=== PATIENT | male | born 1970 | race African-American/Black ===

== ENCOUNTER 2017-04-09 12:00 | Observation (INO) | payer SELFPAY ==
[2017-04-09 13:40] LABS: CKMB 1.8 ng/mL (0-6.6); Troponin I 0.019 ng/mL (< 0.028)
[2017-04-09] MEDS ORDERED: ISOVUE-370 76%-LOCM 1 ML ONE (13:40)
--- NOTE | 2017-04-09 14:42 | HP ---
PRIMARY CARE PHYSICIAN: Robert Stephens M.D. REASON FOR ADMISSION: Epigastric abdominal pain. HISTORY OF PRESENT ILLNESS: A 46-year-old -[place] male who has history of hypertension, dys lipidemia, coronary artery disease with a drug-eluting stent who presented to [facility] w ith complaint of epigastric abdominal pain. The patient reports that this morning he woke up and he was having epigastric abdominal pain. He denies any radiation of pain to the back. He was feeling n auseated. He did not eat anything since last night. He reports that this type of pain exactly he andujar d when he had a stent placed in 2016. Patient denies any fever or chills. He denies any vomiting. He denies any melena or hematochezia. He denies taking any NSAID. He drinks alcohol on weekends on y. He does smoke about 1 pack lasting for 2 days. This morning, he had little bit loose stool, but he denies any crampy abdominal pain. He denies any UTI symptoms. He denies any chest pain and palpi tation. He denies any dyspnea. He denies any orthopnea, PND or leg swelling. He feels about 8/10 i n intensity pain which mostly he describes burning discomfort. He never had this type of problem bef ore. He was evaluated at [facility]. Over there, all blood tests including cardiac enzymes cam e back to normal. This patient was transferred to our hospital for rule out ACS. REVIEW OF SYSTEMS: The following complete review of systems was negative, unless otherwise mentioned in the HPI or below: Constitutional: Weight loss or gain, ability to conduct usual activities. Skin: Rash, itching. Eyes: Double vision, pain. ENT/Mouth: Nose bleeding, neck stiffness, pain, tenderness. Cardiovascular: Palpitations, dyspnea on exertion, orthopnea. Respiratory: Shortness of breath, wheezing, cough, hemoptysis, fever or night sweats. Gastrointestinal: Poor appetite, abdominal pain, heartburn, nausea, vomiting, constipation, or diarr hea. Genitourinary: Urgency, frequency, dysuria, nocturia. Musculoskeletal: Pain, swelling. Neurologic/Psychiatric: Anxiety, depression. Allergy/Immunologic: Skin rash, bleeding tendency. Please see my HPI for pertinent positives and negatives. All other review of systems reviewed and ne gative except as mentioned in the HPI. ALLERGIES: No known drug allergies. CURRENT HOME MEDICATIONS: Lipitor 10 mg p.o. daily, Plavix 75 mg p.o. daily, lisinopril 2.5 mg p.o. daily, metoprolol 50 mg p.o. daily, aspirin 81 mg p.o. daily, and Claritin 10 mg p.o. daily. PAST MEDICAL HISTORY: Chronic low back pain, hypertension, dyslipidemia, coronary artery disease req uired stent placement in 2016. PAST SURGICAL HISTORY: Right shoulder surgery, carpal tunnel repair on the right side, cardiac nan terization with stent placement in 2016. PAST PSYCHIATRIC HISTORY: Reviewed and negative. SOCIAL HISTORY: Patient drinks alcohol socially, particularly on weekend. He drinks heavily about 1 case per weekend. He does smoke 1 pack lasting for 2 days. He is a former drug abuser with [employer]. He denies any illicit drug abuse. He is not working. FAMILY HISTORY: Positive for coronary artery disease among several family members. EMERGENCY ROOM COURSE: Patient was given morphine 4 mg x2, Zofran 4 mg, and aspirin 243 mg at [facility]. PHYSICAL EXAMINATION: VITAL SIGNS: Currently, blood pressure 177/110, pulse 65, respiratory rate 16, temperature 98.6, sat uration 97% on room air. Weight 88 kilograms. GENERAL: The patient is hypertensive, in no obvious acute distress. HEAD: Normocephalic, atraumatic. EYES: Pupils round, reactive to light. Extraocular muscles intact. ENT: Oropharynx within normal limits. Moist mucous membranes. No oral lesions. No pharyngeal eryt ben, no exudate. NECK: Supple, no JVD, no thyromegaly, no carotid bruit, no jugular venous distention. LUNGS: Clear to auscultation without any rhonchi or rales. CARDIAC: S1 and S2 regular without any murmur. ABDOMEN: Soft. No Ward's sign of epigastric discomfort noted, but no tenderness, no organomegaly, no mass. No suprapubic tenderness. Bowel sounds present and nondistended. No peritoneal signs, no guarding, no rigidity. BACK: Examination unremarkable, no CVA tenderness. EXTREMITIES: Upper extremity passive movements of all joints are normal. Lower extremities: No aris ma. Good peripheral pulsation. SKIN: No skin rash. HEMATOLOGICAL SYSTEM: No lymphadenopathy. NEUROLOGIC: Nonfocal examination. IMAGING DATA AND SIGNIFICANT LABORATORY DATA: 1. EKG showing sinus bradycardia, nonspecific ST-T changes. 2. Chest x-ray based on my review, no acute cardiopulmonary process. 3. CBC: WBC 7.0, hemoglobin 14.0, platelet 235. INR 1.0. 4. BMP: Sodium 138, potassium 4.6, chloride 107, carbon dioxide 22, BUN 13, creatinine 0.89, glucos e 105, calcium 9.1. 5. LFT: AST 29, ALT 32, alkaline phosphatase 66, albumin 4.1, lipase 9. Cardiac enzymes negative. BNP 19.7. ASSESSMENT AND PLAN/IMPRESSION: 1. Epigastric abdominal pain. I am suspecting mild gastritis contributing to current presentation, but patient reports that he does have exactly similar symptoms when he had a stent placed and that is why we will do serial cardiac enzymes to rule out acute coronary syndrome. If cardiac enzyme turns out to be negative, then we will consider doing exercise Cardiolite stress test tomorrow morning for diagnostic reason. Meanwhile, we will continue with aspirin 325 mg p.o. daily. We will check lipid profile for risk stratification and we will continue nitropatch q.8 hourly. We will better control h is uncontrolled blood pressure. Healthy lifestyle measures discussed with the patient. We will also do right upper quadrant ultrasound to rule out any other pathology. If ultrasound is normal, and if stress test is normal, then this patient will be given proton pump inhibitor and he can have outpati ent followup with Gastroenterology for possible evaluation with endoscopy if needed. 2. Coronary artery disease. This patient had [place] in 2016 and required drug-eluting stent in proximal RCA. The patient is currently on aspirin, Plavix, statin therapy as well as beta meri and VIVIEN in hibitor. We will continue all of those medications while in hospital, and at this time we are trying to rule out acute coronary syndrome. 3. Dyslipidemia. Check lipid profile tomorrow and continue Lipitor 10 mg p.o. at bedtime. 4. Hypertension, currently not well controlled. We will continue patient's home medication of lisin opril and metoprolol as per home dosage. We will also put nitropatch q.8 hourly and we will use hydr alazine on p.r.n. basis for better blood pressure control. We may need to adjust his blood pressure medications during this admission 5. Tobacco abuse disorder. Smoking cessation counseling given. Healthy lifestyle measures discusse d with the patient. 6. Alcohol abuse. Patient is given counseling to avoid alcohol abuse as well. 7. Deep venous thrombosis prophylaxis not needed because we are expecting discharge in 24 hours. 8. Gastrointestinal prophylaxis, Protonix 40 mg p.o. daily. CODE STATUS: The patient is FULL CODE. Patient does not have any surrogate decision maker. Disposition and plan based on clinical course, likely within 24 hours. Plan of care discussed with t loco patient and family member at bedside in the emergency room.
[2017-04-09] MEDS ORDERED: hydrALAZINE 20 MG/ML VIAL ONE (14:58)
[2017-04-09] MEDS ORDERED: Senokot 8.6 MG TAB PO PRN (16:01)
[2017-04-09] MEDS ORDERED: cloNIDine 0.1 MG TAB PO PRN (16:01)
[2017-04-09] MEDS ORDERED: Loratadine 10 MG TAB PO PRN (16:01)
[2017-04-09] MEDS ORDERED: Ondansetron ODT 4 MG TAB PO PRN (16:01)
[2017-04-09] MEDS ORDERED: Sodium Chloride 0.65% Nasal 44 ML BOT EA NARE PRN (16:01)
[2017-04-09] MEDS ORDERED: Loperamide HCl 2 MG CAP PO PRN (16:01)
[2017-04-09] MEDS ORDERED: Eucerin (Mineral Oil/Petrolatum,White) 30 gm Jar TOP PRN (16:01)
[2017-04-09] MEDS ORDERED: Diabetic Tussin 200 MG/10 ML UDCUP PO PRN (16:01)
[2017-04-09] MEDS ORDERED: Artificial Tear Sol 15 ML BOT EA EYE PRN (16:01)
[2017-04-09] MEDS ORDERED: Milk Of Magnesia 30 ML UDCUP PO PRN (16:01)
[2017-04-09] MEDS ORDERED: Ondansetron HCl/PF 4 MG/2 ML Vial IVP PRN (16:01)
[2017-04-09] MEDS ORDERED: Chloraseptic Spray 180 ml Bottle PO PRN (16:01)
[2017-04-09] MEDS ORDERED: Zolpidem Tartrate 5 MG TAB PO PRN (16:01)
[2017-04-09] MEDS ORDERED: hydrALAZINE 20 MG/ML VIAL SLOW IVP PRN (16:01)
[2017-04-09] MEDS ORDERED: Mag-Al 1200 mg/1200 mg/30 ML UDCUP PO PRN (16:01)
[2017-04-09] MEDS ORDERED: Nitroglycerin 0.4 MG TAB (25 Tab Bottle) SL PRN (16:01)
[2017-04-09] MEDS ORDERED: Morphine 5 MG/ML SYRINGE SLOW IVP PRN (16:27)
--- NOTE | 2017-04-09 16:29 | CT ---
CTA CHEST WITH CONTRAST CTA ABDOMEN WITH CONTRAST: History: Abdominal pain, back pain. Technique: Multiple contiguous axial images were obtained in a CTA of the chest and abdomen with cont rast per aortic dissection protocol. 3D sagittal and coronal MIP reformats were performed. FINDINGS: Emphysematous changes are seen in the lung apices. No focal infiltrates are seen in the lungs. No pne umothorax or pleural effusion are seen. No suspicious pulmonary nodules are seen. The heart is normal in size without focal cardiac abnormality. No hilar or mediastinal lymphadenopath y is seen. The liver, gallbladder, right kidney, adrenal glands, spleen and pancreas are unremarkable. A 1.6 cm hypodensity in the left kidney represents a cyst. No free air, free fluid, or stranding changes are seen in the abdomen. Visualized large and small bow el are unremarkable. No abdominal adenopathy is seen. The aorta is normal in caliber without evidence of aneurysmal dilatation of dissection. This includes the thoracic and abdominal aorta. The celiac trunk, SMA, and OLGA are patent. No significant atherosc lerotic disease is seen. A single renal artery is seen on the right and two renal arteries are seen o n the left without significant atherosclerotic disease. Degenerative changes are seen in the spine. The chest and abdominal wall soft tissues are unremarkabl e. IMPRESSION: 1. No evidence of aortic dissection or aneurysmal dilatation. 2. Left renal cyst. POS: [facility]
[2017-04-09 16:31] VITALS: BMI 29.9
[2017-04-09] MEDS: Acetaminophen 325 MG TAB PO PRN (16:46)
[2017-04-09] MEDS ORDERED: Lidocaine 2% Viscous Solution 10 ML, Aluminum & Magnesium Hydroxide 30 ML SSW SCH (17:00)
[2017-04-09 19:31] LABS: Troponin I 0.019 ng/mL (< 0.028)
[2017-04-09] MEDS ORDERED: Atorvastatin Calcium 10 MG TAB PO SCH (21:00)
[2017-04-09] MEDS: Nitroglycerin 2% Ointment 1 INCH/1 GM Packet TOP SCH (21:42)
[2017-04-10] MEDS: HYDROcodone/Acetaminophen 10/325 mg Tablet PO PRN ×2 (03:47→10:45)
[2017-04-10 05:02] LABS: Cardiac Risk 3.2 (Less than 4.5)
[2017-04-10] MEDS: Nitroglycerin 2% Ointment 1 INCH/1 GM Packet TOP SCH (06:02)
[2017-04-10] MEDS: Acetaminophen 325 MG TAB PO PRN (06:43)
--- NOTE | 2017-04-10 08:07 | ULT ---
RIGHT UPPER QUADRANT ULTRASOUND: HISTORY: Epigastric pain. FINDINGS: The liver demonstrates homogeneous echotexture without focal mass or intrahepatic ductal dilatation. No gallstones, gallbladder wall thickening, or pericholecystic fluid is seen. The common duct measu res 3 mm in diameter. The right kidney and pancreas are normal. No free fluid is noted in the Kevan on's pouch. IMPRESSION: Normal exam. POS: [facility]
[2017-04-10] MEDS ORDERED: Aspirin 325 MG TAB PO SCH (09:00)
[2017-04-10] MEDS ORDERED: Clopidogrel Bisulfate 75 MG TAB PO SCH (09:00)
[2017-04-10] MEDS ORDERED: Lisinopril 2.5 MG TAB PO SCH (09:00)
--- NOTE | 2017-04-10 11:02 | PDOC.PN ---
- Subjective Encounter Start Date: 04/10/17 Encounter Start Time: 07:30 Patient seen and examined. No new complaints. No overnight events - Objective Resuscitation Status: Resuscitation Status FULL:Full Resuscitation MAR Reviewed: Yes Vital Signs & Weight: Vital Signs (12 hours) Temp Pulse Resp BP Pulse Ox 04/10/17 07:47 98.9 F 92 18 04/10/17 07:30 98.3 F 73 16 143/86 H 97 04/10/17 03:40 98.9 F 92 18 127/73 97 Weight Weight 196 lb 9 oz I&O: 04/09/17 04/10/17 04/11/17 06:59 06:59 06:59 Intake Total 700 Output Total 200 Balance 500 Radiology Reviewed by me: Yes (us abdomen) EKG Reviewed by me: Yes (nsr) Phys Exam - Physical Examination Constitutional: NAD HEENT: PERRLA, moist MMs, sclera anicteric Neck: no JVD, supple Respiratory: no wheezing, no rales, no rhonchi Cardiovascular: RRR, no significant murmur, no rub Gastrointestinal: soft, non-tender, no distention, positive bowel sounds Musculoskeletal: no edema, pulses present Neurological: non-focal, normal sensation, moves all 4 limbs Psychiatric: normal affect, A&O x 3 Skin: no rash, normal turgor Dx/Plan (1) Epigastric abdominal pain Code(s): R10.13 - EPIGASTRIC PAIN Status: Acute (2) Alcohol abuse Code(s): F10.10 - ALCOHOL ABUSE, UNCOMPLICATED Status: Chronic (3) CAD (coronary artery disease) Code(s): I25.10 - ATHSCL HEART DISEASE OF [place] CORONARY ARTERY W/O ANG PCTRS Status: Chronic (4) Dyslipidemia Code(s): E78.5 - HYPERLIPIDEMIA, UNSPECIFIED Status: Chronic (5) Hypertension Code(s): I10 - ESSENTIAL (PRIMARY) HYPERTENSION Status: Chronic (6) Tobacco abuse Code(s): Z72.0 - TOBACCO USE Status: Chronic - Plan cont current plan of care * if stress test is normal, will discharge home * medication reviewed as below * symptomatic treatment. Review of Systems - Review of Systems ENT: negative: Ear Pain, Ear Discharge, Nose Pain, Nose Discharge, Nose Congestion, Mouth Pain, Mouth Swelling, Throat Pain, Throat Swelling, Other Respiratory: negative: Cough, Dry, Shortness of Breath, Hemoptysis, SOB with Excertion, Pleuritic Pain, Sputum, Wheezing Cardiovascular: negative: chest pain, palpitations, orthopnea, paroxysmal nocturnal dyspnea, edema, light headedness, other Gastrointestinal: negative: Nausea, Vomiting, Abdominal Pain, Diarrhea, Constipation, Melena, Hematochezia, Other Genitourinary: negative: Dysuria, Frequency, Incontinence, Hematuria, Retention , Other Musculoskeletal: negative: Neck Pain, Shoulder Pain, Arm Pain, Back Pain, Hand Pain, Leg Pain, Foot Pain, Other Skin: negative: Rash, Lesions, Markus, Bruising, Other - Medications/Allergies Allergies/Adverse Reactions: Allergies Allergy/AdvReac Type Severity Reaction Status Date / Time No Known Allergies Allergy Verified 08/04/15 12:08 Medications: Current Medications Acetaminophen (Tylenol) 650 mg PO Q4H PRN PRN Reason: Headache/Fever or Pain Last Admin: 04/10/17 06:43 Dose: 650 mg Hydrocodone Bitart/Acetaminophen (Witter 10/325) 1 tab PO Q4H PRN PRN Reason: Moderate Pain (4-6) Last Admin: 04/10/17 10:45 Dose: 1 tab Al Hydroxide/Mg Hydroxide (Maalox) 30 ml PO Q6H PRN PRN Reason: Heartburn or Indigestion Artificial Tears (Tears Renewed 15ml Bottle) 0 drop EA EYE PRN PRN PRN Reason: Dry Eyes Aspirin (Aspirin) 325 mg PO DAILY [facility] Last Admin: 04/10/17 10:45 Dose: 325 mg Atorvastatin Calcium (Lipitor) 10 mg PO HS [facility] Last Admin: 04/09/17 20:43 Dose: 10 mg Clonidine (Catapres) 0.1 mg PO Q4H PRN PRN Reason: SBP GREATER THAN 160 Clopidogrel Bisulfate (Plavix) 75 mg PO DAILY [facility] Last Admin: 04/10/17 10:45 Dose: 75 mg Guaifenesin (Robitussin Sf) 200 mg PO Q4H PRN PRN Reason: Cough Hydralazine HCl (Apresoline) 10 mg SLOW IVP Q4H PRN PRN Reason: SBP GREATER THAN 160 Lisinopril (Zestril) 2.5 mg PO DAILY [facility] Last Admin: 04/10/17 10:44 Dose: 2.5 mg Loperamide HCl (Imodium) 2 mg PO PRN PRN PRN Reason: Diarrhea/Loose Stools Loratadine (Claritin) 10 mg PO DAILYPRN PRN PRN Reason: Sinus Symptoms Magnesium Hydroxide (Milk Of Magnesium) 30 ml PO DAILYPRN PRN PRN Reason: Constipation Metoprolol Succinate (Toprol Xl) 50 mg PO DAILY [facility] Last Admin: 04/10/17 10:45 Dose: 50 mg Mineral Oil/White Petrolatum (Eucerin Cream) 0 gm TOP BIDPRN PRN PRN Reason: Dry Skin Morphine Sulfate (Morphine) 2 mg SLOW IVP Q4H PRN PRN Reason: Pain Nitroglycerin (Nitrostat) 0.4 mg SL Q5MIN PRN PRN Reason: Chest Pain Nitroglycerin (Nitro-Bid 2% Ointment) 0.5 inch TOP Q8HR [facility] Last Admin: 04/10/17 06:02 Dose: Not Given Ondansetron HCl (Zofran Odt) 4 mg PO Q6H PRN PRN Reason: Nausea/Vomiting Ondansetron HCl (Zofran) 4 mg IVP Q6H PRN PRN Reason: Nausea/Vomiting Last Admin: 04/09/17 16:44 Dose: 4 mg Pantoprazole Sodium (Protonix) 40 mg PO DAILY [facility] Last Admin: 04/10/17 10:45 Dose: 40 mg Phenol (Chloraseptic [place] 180 Ml Bot) 0 ml PO PRN PRN PRN Reason: Sore Throat Senna (Senokot) 2 tab PO HSPRN PRN PRN Reason: Constipation Sodium Chloride (Mason Nasal [place] 0.65%) 0 ml EA NARE QIDPRN PRN PRN Reason: Nasal Congestion Zolpidem Tartrate (Ambien) 5 mg PO HSPRN PRN PRN Reason: Insomnia Last Admin: 04/09/17 21:26 Dose: 5 mg
[2017-04-10 11:47] VITALS: BP 145/75; TEMP 98.2
--- NOTE | 2017-04-10 12:13 | DIS ---
DATE OF ADMISSION: 04/09/2017 DATE OF DISCHARGE: 04/10/2017 PRIMARY CARE PHYSICIAN: Robert Stephens M.D. DISCHARGE DISPOSITION: Home. PRIMARY DISCHARGE DIAGNOSIS: Epigastric abdominal pain. SECONDARY DISCHARGE DIAGNOSES: Alcohol abuse, coronary artery disease, dyslipidemia, tobacco abuse, and hypertension. PRIMARY PROCEDURE/OPERATION: None. RADIOLOGICAL INVESTIGATION: CT dissection normal. Stress test normal. Abdominal ultrasound normal. SIGNIFICANT LABORATORY DATA: Cardiac enzymes negative x3. LDL 46. CBC, BMP, LFTs normal. DISCHARGE MEDICATIONS: Aspirin 81 mg p.o. daily, Lipitor 10 mg p.o. daily, Plavix 75 mg p.o. daily, Pepcid 20 mg p.o. b.i.d., lisinopril 10 mg p.o. daily, and Toprol-XL 50 mg p.o. daily. CONTRAINDICATIONS: None. CODE STATUS: FULL CODE. INPATIENT CONSULTANTS: None. ALLERGIES: No known drug allergy. DISCHARGE PLAN: Post hospital, patient will follow with primary care physician. HOSPITAL COURSE: A 46-year-old male who went to [facility] for epigastric abdominal pain. His description was predominantly GI, but as patient reported that he had exactly similar symptoms when he had heart attack and that is why we kept in hospital for observation. Serial cardiac enzymes were negative. We did an abdominal ultrasound that was normal. Stress test was also normal and a C T dissection protocol came back normal. Patient observed on telemetry floor without any arrhythmia. The patient is doing very well. His billy n subsided with antacid medication. We prescribed Pepcid upon discharge. We provided counseling to avoid smoking and alcohol abuse. Overall, patient is medically stable for discharge. The patient is seen and examined at bedside neymar bailey. Please see my progress note from today for further detail.
--- NOTE | 2017-04-10 12:27 | NM ---
CARDIAC STRESS TEST: HISTORY: Chest pain, coronary artery disease, hypertension, dyslipidemia. TECHNIQUE: A myocardial perfusion scan was performed using the single-isotope 1-day protocol with Technetium 99m sestamibi. Eleven mCi were injected intravenously for the rest exam followed by 32 mCi for the stre ss study. Exercise stress was monitored and interpreted by Soto Pittman, nurse practitioner. FINDINGS: Homogeneous tracer distribution is seen in the myocardial segments on stress and rest images without fixed or reversible defects. GATED SPECT LVEF: 53%. WALL MOTION EXAM: Normal. IMPRESSION: Normal myocardial perfusion scan. POS: [facility]
--- NOTE | 2017-04-25 09:26 | STRESS ---
Acquisition Time: 2017-04-10 09:32:00 Total Exercise Time: 00:08:53 Test Indications: CHEST PAIN Medications: Protocol: ALFONZO Max HR: 148 BPM 86% of Pred: 172 BPM Max BP: 188/090 mmHG Max Work Load: 10.1 METS RESTING ECG: NORMAL SINUS RHYTHM AT 67 BPM SYMPTOMS: HEADACHE NORMAL BP RESPONSE ECTOPY: RARE PVC'S ECG STRESS: NO SIGNIFICANT CHANGES INTERPRETATION: NEGATIVE GXT/AWAIT NUCLEAR IMAGES FOR DEFINITIVE DIAGNOSIS Confirmed by BOYD MARSH ([id number]) on 04/25/2017 8:39:17 AM Also confirmed by BOYD MARSH ([id number]), videotape editor МАРИНА MUÑIZ ([id number]) on 04/25/2017 9:25:53 AM Referred By: MD Sanchez LINO Confirmed By:BOYD MARSH
--- NOTE | 2017-04-25 15:12 | EKG ---
Test Reason : Blood Pressure : / mmHG Vent. Rate : 057 BPM Atrial Rate : 057 BPM P-R Int : 156 ms QRS Dur : 090 ms QT Int : 426 ms P-R-T Axes : 032 -11 012 degrees QTc Int : 414 ms Sinus bradycardia Otherwise normal ECG Confirmed by APRIL HOWE ([id number]), editorial specialist NIK LUBIN ([id number]) on 04/25/2017 3:12:21 PM Referred By: Confirmed By:APRIL HOWE
== END 2017-04-10 12:34 | disposition home or self-care (01) ==
LOC: ERS 12:00 → 2SW 14:05
PROVIDERS: ADMIT Internal Medicine; ATTEND Internal Medicine
DX: R10.13 Epigastric pain (principal); F10.10 Alcohol abuse, uncomplicated; F12.11 Cannabis abuse, in remission; I25.10 Atherosclerotic heart disease of native coronary artery without angina pectoris; E78.5 Hyperlipidemia, unspecified; I10 Essential (primary) hypertension; F17.210 Nicotine dependence, cigarettes, uncomplicated; M54.5 Low back pain; G89.29 Other chronic pain; Z79.82 Long term (current) use of aspirin; Z79.02 Long term (current) use of antithrombotics/antiplatelets; Z79.899 Other long term (current) drug therapy; Z95.818 Presence of other cardiac implants and grafts; Z98.890 Other specified postprocedural states
CPT/HCPCS: 36415; 71275; 76705; 78452; 80061; 93005; 93017; 96374; 96375; A9500; G0378; J0360; J2270; J2405

== ENCOUNTER 2019-01-08 20:58 | Observation (INO) | payer SELFPAY ==
[~2019-01-08 20:58] MED LIST: Iopamidol-370 76% 500 ML 1 ML ONE
--- NOTE | 2019-01-08 22:14 | CT ---
Exam: CT angiogram chest with 3-D rendering: CT angiogram abdomen with 3-D rendering: HISTORY: Chest pain COMPARISON: 04/09/2017 FINDINGS: No CT evidence for thoracic aortic aneurysm or dissection. Main pulmonary artery segments show no zac dence for acute thrombus. Bilateral bullous disease particularly medially and in the upper lung zones. No mediastinal mass or adenopathy. No pleural effusion or pericardial effusion. No evidence for abdominal aortic aneurysm or dissection. Celiac artery, superior mesenteric artery, i nferior mesenteric artery, and both renal arteries appear unremarkable. Small left renal cyst. IMPRESSION: No evidence for aortic dissection or other acute process. Stable bullous changes in the medial aspect of the upper lung zones. Small left renal cyst.
[2019-01-08] MEDS ORDERED: Morphine 4 MG/ML VIAL ONE (22:29)
[2019-01-08 23:22] LABS: Troponin I Less than 0.010 ng/mL (< 0.028)
[2019-01-09 01:32] VITALS: BMI 29.2
[2019-01-09 01:55] LABS: Troponin I Less than 0.010 ng/mL (< 0.028)
[2019-01-09] MEDS ORDERED: Ketorolac Tromethamine 30 MG/ML VIAL IVP SCH (02:30)
[2019-01-09] MEDS ORDERED: Bisacodyl 5 MG TAB PO PRN (07:35)
[2019-01-09] MEDS ORDERED: Ondansetron PF 4 MG/2 ML Vial IVP PRN (07:35)
[2019-01-09] MEDS ORDERED: Calcium Carbonate 500 MG ChewTAB PO PRN (07:35)
[2019-01-09] MEDS ORDERED: Ondansetron ODT 4 MG TAB PO PRN (07:35)
[2019-01-09] MEDS ORDERED: Senokot S 8.6-50 MG TAB PO PRN (07:35)
[2019-01-09] MEDS ORDERED: Acetaminophen 325 MG TAB PO PRN (07:35)
[2019-01-09] MEDS ORDERED: Nitroglycerin 0.4 MG TAB (25 Tab Bottle) PO PRN (07:37)
[2019-01-09] MEDS ORDERED: Cyclobenzaprine 10 MG TAB PO PRN (07:44)
[2019-01-09] MEDS ORDERED: Ibuprofen 200 MG TAB PO PRN (07:45)
[2019-01-09] MEDS ORDERED: Sodium Chloride 0.9% 1,000 ML IV SCH ×2 (07:45)
[2019-01-09] MEDS ORDERED: Ketorolac Tromethamine 30 MG/ML VIAL IVP PRN (08:00)
[2019-01-09] MEDS ORDERED: Famotidine 20 MG TAB PO SCH (09:00)
[2019-01-09] MEDS ORDERED: Aspirin 325 mg Enteric Coated Tablet PO SCH (09:00)
[2019-01-09 09:12] LABS: Cardiac Risk 4.8 (Less than 4.5); Cholesterol 145 mg/dl (< 200 Desired); HDL Cholesterol 30 mg/dL (>60 Neg Risk); Triglycerides 427 mg/dL (Less than 150)
--- NOTE | 2019-01-09 13:47 | NM ---
CARDIAC SPECT: CLINICAL HISTORY: 48-year-old male with chest pain, coronary artery disease, [place], stent placement, hypertension, smoker. TECHNIQUE: A myocardial perfusion scan was performed using the single isotope one day protocol with technetium-9 9m sestamibi. 11 mCi were injected intravenously for the rest exam followed by 30 mCi for the stress exam. Pharmacologic stress with Lexiscan was monitored and interpreted by Soto Wadsworth NP. FINDINGS: Homogeneous tracer distribution is seen in the myocardial segments on stress and rest images without fixed or reversible defects. GATED SPECT LVEF: 59%. WALL MOTION EXAM: Normal. IMPRESSION: Normal myocardial perfusion scan. POS: [facility]
[2019-01-09 16:25] VITALS: BP 159/95; TEMP 97.5
[2019-01-09] MEDS ORDERED: Regadenoson 0.4 MG/5 ML SYRINGE ONE (16:25)
--- NOTE | 2019-01-12 07:53 | SS ---
DATE OF ADMISSION: 01/08/2019 DATE OF DISCHARGE: 01/09/2019 CHIEF COMPLAINT: Chest discomfort. HISTORY OF PRESENT ILLNESS: The patient is a 48-year-old male with coronary artery disease, status post stent placement, hypertension, dyslipidemia, presented to the emergency room with chest discomfort. The chest discomfort started yesterday morning and was radiating to his right scapular area. The pain was worse with deep breathing and movement. He denies any nausea, vomiting, lightheadedness, shortness of breath, or syncope. In the emergency room, his initial vital signs showed temperature 98.1 with pulse rate of 75, respiration of 19, with a blood pressure 148/89. CT dissection protocol was negative for dissection or aneurysmal dilatation. His EKG showed sinus bradycardia. He received aspirin, Zofran, and morphine along with nitroglycerin patch. His symptoms started to improve. PAST MEDICAL HISTORY: 1. Coronary artery disease, status post RCA stent in 2015. 2. Hypertension. 3. Dyslipidemia. 4. Tobacco dependence. PAST SURGICAL HISTORY: 1. Cardiac catheterization. 2. Right shoulder surgery. 3. Carpal tunnel repair. ALLERGIES: NO KNOWN DRUG ALLERGIES. CURRENT HOME MEDICATIONS: 1. Toprol-XL 100 mg daily. 2. Aspirin 81 mg daily. 3. Lisinopril/hydrochlorothiazide 20/12.5 daily. SOCIAL HISTORY: The patient continues to smoke up to half pack a day. He drinks alcohol socially. He abuses cannabis. FAMILY HISTORY: Positive for coronary artery disease. REVIEW OF SYSTEMS: All other review of systems was reviewed and was found negative. PHYSICAL EXAMINATION: VITAL SIGNS: As discussed above. GENERAL: A 48-year-old male in no apparent distress. Chest discomfort has improved. HEENT: Head, atraumatic and normocephalic. Sclerae anicteric. Moist mucous membranes. No oral lesion. NECK: Supple. No JVD. No carotid bruit. LUNGS: Clear to auscultation bilaterally. No wheezing, rales, or rhonchi. HEART: S1 and S2 present. Regular rate and rhythm. There is questionable reproducible area in this right scapular region. No rubs or gallops. ABDOMEN: Soft, nontender. Bowel sounds present. No rebound or guarding. EXTREMITIES: No edema or calf tenderness. NEUROLOGIC: Grossly nonfocal. Moves all 4 extremities. PSYCHIATRIC: Alert, awake, and oriented x3. SKIN: Warm and dry. LYMPH NODES: No palpable lymph nodes in the neck. PERIPHERAL VASCULAR: Radial pulses palpable bilaterally. MUSCULOSKELETAL: No joint swelling or tenderness. LABORATORY FINDINGS: Troponin was negative. Fasting lipid profile showed cholesterol 145, triglycerides 427, LDL could not be calculated, HDL was 30. CK was 739. BNP was 15.8. Electrolytes were normal. WBC was 6.9 with hemoglobin 13. Chest x-ray by my review was negative for infiltrate. EKG by my review showed sinus bradycardia with T-wave inversions in lead III. CT dissection protocol was negative. BRIEF HOSPITAL COURSE: The patient was admitted to telemetry unit with diagnosis of chest discomfort, rule out acute coronary syndrome. His serial troponins were negative. Due to history of coronary artery disease with stent placement and lack of followup with Cardiology, he underwent a stress test that was negative for reversible ischemia. His chest pain has significantly improved. A prescription for Flexeril has been sent to the pharmacy. He was advised to follow up with [facility] in 1 week. He appears stable for discharge. FINAL DIAGNOSES: 1. Chest discomfort, acute coronary syndrome ruled out. 2. No reversible ischemia on the stress test. 3. Dyslipidemia. The patient has been started on statins. 4. Hypertension. 5. Coronary artery disease, status post RCA stent placement. 6. Ongoing tobacco abuse. The patient was counseled. 7. Ongoing cannabis abuse. The patient was counseled. PLAN: Plan was discussed with the patient and the family in detail. He stated understanding. Job ID: [id number]
== END 2019-01-09 16:45 | disposition home or self-care (01) ==
LOC: ERS 20:58 → 2NO 22:34
PROVIDERS: ADMIT Family Medicine; ATTEND Family Medicine
DX: R07.9 Chest pain, unspecified (principal); I25.10 Atherosclerotic heart disease of native coronary artery without angina pectoris; I10 Essential (primary) hypertension; E78.5 Hyperlipidemia, unspecified; F17.210 Nicotine dependence, cigarettes, uncomplicated; F12.10 Cannabis abuse, uncomplicated; Z79.82 Long term (current) use of aspirin; Z79.899 Other long term (current) drug therapy; Z95.5 Presence of coronary angioplasty implant and graft
CPT/HCPCS: 36415; 71275; 72191; 74175; 78452; 80061; 84484; 93005; 93017; 96374; 96375; 96376; A9500; G0378; J1885; J2270; J2785; Q9967

== ENCOUNTER 2021-09-04 12:18 | Emergency (ER) | payer SELFPAY | END 2021-09-04 14:07 | disposition home or self-care (01) | LOC: ERS 12:18 | DX: S76.911A Strain of unspecified muscles, fascia and tendons at thigh level, right thigh, initial encounter (principal); X58.XXXA Exposure to other specified factors, initial encounter ==